=== PATIENT | male | born 1955 | race Caucasian/White ===

== ENCOUNTER 2019-11-12 12:34 | Emergency (ER) | payer BC ==
[2019-11-12] MEDS ORDERED: Aspirin 81 MG Tab.Chew PO ONE (12:35)
[2019-11-12] MEDS ORDERED: Sodium Chloride 0.9% 10 ML Syringe FLUSH PRN (12:35)
[2019-11-12] MEDS ORDERED: Sodium Chloride 0.9% 1,000 ML IV SCH (12:45)
--- NOTE | 2019-11-12 13:00 | CR ---
Chest: Portable view of the chest was obtained. Comparison: No prior chest imaging is available. Heart size and mediastinum are normal. Lungs are clear with no acute parenchymal change. Minimal scoliosis and degenerative spurring is noted within the spine. Impression: 1. Findings as noted above. 2. Nothing acute is appreciated. Diagnostic code #2 This report was dictated in MDT
[2019-11-12] MEDS ORDERED: Ondansetron 4 MG/2 ML SDV IVPUSH ONE (13:15)
[2019-11-12] MEDS ORDERED: Sodium Chloride 0.9% 1,000 ML IV ONE (13:22)
--- NOTE | 2019-11-12 13:28 | EDM.PDOC ---
ED HPI GENERAL MEDICAL PROBLEM - General Chief Complaint: Chest Pain Stated Complaint: [facility] Time Seen by Provider: 11/12/19 12:37 Source of Information: Reports: Patient History Limitations: Reports: No Limitations - History of Present Illness INITIAL COMMENTS - FREE TEXT/NARRATIVE: The patient presents by [facility] for chest pain. [place] He started getting lightheaded, diaphoretic and had chest pain. He called 911 and they met him on the road. This has never happened before. He has no history of heart disease. He does have hypertension and hypercholesterolemia. He does not smoke and he has no history of diabetes. EMS had a junctional rhythm in the 40s during transport. When he arrived here, he was in a sinus rhythm in the 40s and 50s. The chest pain is nearly gone. Onset: Sudden Duration: Minutes: Location: Reports: Chest Quality: Reports: Pressure Severity: Moderate Improves with: Reports: None Worsens with: Reports: None Associated Symptoms: Reports: Chest Pain, Shortness of Breath. Denies: Cough, Fever/Chills, Headaches, Nausea/Vomiting - Related Data Allergies Allergy/AdvReac Type Severity Reaction Status Date / Time No Known Allergies Allergy Verified 11/12/19 12:42 Home Meds: Home Meds Losartan [Cozaar] 100 mg PO DAILY 11/12/19 [History] Omeprazole 20 mg PO DAILY 11/12/19 [History] Primadone 200 mg PO DAILY 11/12/19 [History] atorvaSTATin [Lipitor] 10 mg PO DAILY 11/12/19 [History] Past Medical History Cardiovascular History: Reports: High Cholesterol, Hypertension Gastrointestinal History: Reports: GERD Neurological History: Reports: Other (See Below) Other Neuro History: tremors/shakes Social & Family History - Tobacco Use Smoking Status *Q: Never Smoker - Caffeine Use Caffeine Use: Reports: Coffee - Recreational Drug Use Recreational Drug Use: No ED ROS GENERAL - Review of Systems Review Of Systems: See Below Constitutional: Reports: Weakness, Fatigue HEENT: Reports: No Symptoms Respiratory: Reports: Shortness of Breath Cardiovascular: Reports: Chest Pain Endocrine: Reports: No Symptoms GI/Abdominal: Reports: No Symptoms : Reports: No Symptoms Musculoskeletal: Reports: No Symptoms Skin: Reports: No Symptoms ED EXAM, GENERAL - Physical Exam Exam: See Below Exam Limited By: No Limitations General Appearance: Alert, No Apparent Distress Ears: Normal External Exam Nose: Normal Inspection Head: Atraumatic, Normocephalic Neck: Normal Inspection Respiratory/Chest: No Respiratory Distress, Lungs Clear, Normal Breath Sounds Cardiovascular: No Edema, No Murmur, Bradycardia GI/Abdominal: Soft, Non-Tender, No Organomegaly, No Mass Back Exam: Normal Inspection Extremities: Normal Inspection EKG INTERPRETATION EKG Date: 11/12/19 Time: 12:31 Rhythm: Other (sinus bradycardia) Rate (Beats/Min): 45 [place]: Normal P-Wave: Present QRS: Normal ST-T: Normal QT: Normal Course - Vital Signs Last Recorded V/S: Last Vital Signs Temp 96.2 F L 11/12/19 12:36 Pulse 50 L 11/12/19 12:36 Resp 20 11/12/19 12:36 BP 161/100 H 11/12/19 12:36 Pulse Ox 100 11/12/19 12:36 - Orders/Labs/Meds Orders: Active Orders 24 hr Category Date Time Status Cardiac Monitoring [RC] . DIRECTED Care 11/12/19 12:35 Active EKG Documentation Completion [RC] STAT Care 11/12/19 12:36 Active Oxygen Therapy [RC] PRN Care 11/12/19 12:35 Active Peripheral IV Care [RC] . DIRECTED Care 11/12/19 12:36 Active CORONAVIRUS COVID-19 RAPID PCR [MOLEC] Stat Lab 11/12/19 14:13 Received Sodium Chloride 0.9% [Normal Saline] 1,000 ml Med 11/12/19 12:45 Active IV ASDIRECTED Sodium Chloride 0.9% [Saline Flush] Med 11/12/19 12:35 Active 10 ml FLUSH ASDIRECTED PRN Peripheral IV Insertion Adult [OM.PC] Stat Oth 11/12/19 12:35 Ordered Medication Orders Sodium Chloride (Normal Saline) 1,000 mls @ 150 mls/hr IV ASDIRECTED VERONIKA Last Infusion: 11/12/19 13:50 Dose: 999 mls/hr Documented by: Admin: 11/12/19 12:35 Dose: 150 mls/hr Documented by: GILBERT Sodium Chloride (Saline Flush) 10 ml FLUSH ASDIRECTED PRN PRN Reason: Keep Vein Open Last Admin: 11/12/19 13:14 Dose: 10 ml Documented by: GILBERT Labs: Laboratory Tests 11/12/19 11/12/19 11/12/19 Range/Units 12:45 12:45 12:45 WBC 5.00 (4.23-9.07) K/mm3 RBC 4.86 (4.63-6.08) M/mm3 Hgb 15.4 (13.7-17.5) gm/dl Hct 45.4 (40.1-51.0) % MCV 93.4 H (79.0-92.2) fl MCH 31.7 (25.7-32.2) pg MCHC 33.9 (32.2-35.5) g/dl RDW Std Deviation 46.9 H (35.1-43.9) fL Plt Count 172 (163-337) K/mm3 MPV 10.5 (9.4-12.3) fl Neut % (Auto) 51.0 (34.0-67.9) % Lymph % (Auto) 35.2 (21.8-53.1) % [place] % (Auto) 11.6 (5.3-12.2) % Eos % (Auto) 1.8 (0.8-7.0) Baso % (Auto) 0.2 (0.1-1.2) % Neut # (Auto) 2.55 (1.78-5.38) K/mm3 Lymph # (Auto) 1.76 (1.32-3.57) K/mm3 [place] # (Auto) 0.58 (0.30-0.82) K/mm3 Eos # (Auto) 0.09 (0.04-0.54) K/mm3 Baso # (Auto) 0.01 (0.01-0.08) K/mm3 D-Dimer, Quantitative 0.43 (0.19-0.50) mg/L Sodium 139 (136-145) mEq/L Potassium 5.6 H (3.5-5.1) mEq/L Chloride 104 (98-107) mEq/L Carbon Dioxide 28 (21-32) mEq/L Anion Gap 12.6 (5-15) BUN 22 H (7-18) mg/dL Creatinine 1.4 H (0.7-1.3) mg/dL Est Cr Clr Drug Dosing 53.31 mL/min Estimated GFR (MDRD) 51 (>60) mL/min BUN/Creatinine Ratio 15.7 (14-18) Glucose 119 H (80-115) mg/dL Calcium 9.2 (8.5-10.1) mg/dL Total Bilirubin 0.8 (0.2-1.0) mg/dL AST 22 (15-37) U/L ALT 27 (16-63) U/L Alkaline Phosphatase 57 (46-116) U/L Troponin I < 0.017 (0.00-0.056) ng/mL Total Protein 6.6 (6.4-8.2) g/dl Albumin 3.6 (3.4-5.0) g/dl Globulin 3.0 gm/dL Albumin/Globulin Ratio 1.2 (1-2) Meds: Medications Generic Name Dose Route Start Last Admin Trade Name Freq PRN Reason Stop Dose Admin Sodium Chloride 1,000 mls @ 150 mls/hr 11/12/19 12:45 11/12/19 13:50 Normal Saline IV 999 mls/hr ASDIRECTED VERONIKA Infusion Sodium Chloride 10 ml 11/12/19 12:35 11/12/19 13:14 Saline Flush FLUSH 10 ml ASDIRECTED PRN Administration Keep Vein Open Discontinued Medications Generic Name Dose Route Start Last Admin Trade Name Freq PRN Reason Stop Dose Admin Aspirin 324 mg 11/12/19 12:35 11/12/19 12:35 Aspirin PO 11/12/19 12:36 324 mg ONETIME ONE Administration Sodium Chloride 1,000 mls @ 1,000 mls/hr 11/12/19 13:22 11/12/19 14:06 Normal Saline IV 11/12/19 14:21 Not Given ONETIME ONE Metoprolol Tartrate 25 mg 11/12/19 14:19 Lopressor PO 11/12/19 14:20 ONETIME ONE Ondansetron HCl 4 mg 11/12/19 13:15 11/12/19 13:21 Zofran IVPUSH 11/12/19 13:16 4 mg ONETIME ONE Administration - Re-Assessments/Exams Free Text/Narrative Re-Assessment/Exam: 11/12/19 13:33 I ordered an IV NS 1L bolus, EKG, CXR, aspirin and labs. His EKG shows a sinus bradycardia with no acute changes. His CXR looks good. His CBC looks good. His D-dimer is negative. His K is slightly elevated at 5.6. His creatinine is a little elevated at 1.4. His troponin is negative. 11/12/19 14:20 I feel he needs to be admitted for a chest pain rule out and monitor his heart rate. I talked to the patient and he is okay with that but he would like to go to [place]. He is from [place]. I called [facility] in [place] and talked to the hospitalist Dr Banks and she accepted the patient. Departure - Departure Time of Disposition: 14:30 Disposition: DC/Tfer to [facility] 02 Reason for Transfer *Q: Other Condition: Fair Clinical Impression: Bradycardia Chest pain Qualifiers: Chest pain type: unspecified Qualified Code(s): R07.9 - Chest pain, unspecified Referrals: Tru Karimi MD [Primary Care Provider] - Forms: ED Department Discharge Sepsis Event Note (ED) - Evaluation Sepsis Screening Result: No Definite Risk - Focused Exam Vital Signs: Vital Signs Temp Pulse Resp BP Pulse Ox 11/12/19 12:36 96.2 F L 50 L 20 161/100 H 100 - My Orders Last 24 Hours: My Active Orders 11/12/19 12:35 Cardiac Monitoring [RC] . DIRECTED Oxygen Therapy [RC] PRN Sodium Chloride 0.9% [Saline Flush] 10 ml FLUSH ASDIRECTED PRN Peripheral IV Insertion Adult [OM.PC] Stat 11/12/19 12:36 EKG Documentation Completion [RC] STAT Peripheral IV Care [RC] . DIRECTED 11/12/19 12:45 Sodium Chloride 0.9% [Normal Saline] 1,000 ml IV ASDIRECTED 11/12/19 14:13 CORONAVIRUS COVID-19 RAPID PCR [MOLEC] Stat - Assessment/Plan Last 24 Hours: My Active Orders 11/12/19 12:35 Cardiac Monitoring [RC] . DIRECTED Oxygen Therapy [RC] PRN Sodium Chloride 0.9% [Saline Flush] 10 ml FLUSH ASDIRECTED PRN Peripheral IV Insertion Adult [OM.PC] Stat 11/12/19 12:36 EKG Documentation Completion [RC] STAT Peripheral IV Care [RC] . DIRECTED 11/12/19 12:45 Sodium Chloride 0.9% [Normal Saline] 1,000 ml IV ASDIRECTED 11/12/19 14:13 CORONAVIRUS COVID-19 RAPID PCR [MOLEC] Stat
[2019-11-12] MEDS ORDERED: Metoprolol Tartrate 25 MG Tab PO ONE (14:19)
== END 2019-11-12 16:50 ==
LOC: JD.ED 12:34
DX: R07.9 Chest pain, unspecified (principal); R00.1 Bradycardia, unspecified; I10 Essential (primary) hypertension; E78.00 Pure hypercholesterolemia, unspecified; K21.9 Gastro-esophageal reflux disease without esophagitis; Z79.899 Other long term (current) drug therapy; Z20.828 Contact with and (suspected) exposure to other viral communicable diseases
CPT/HCPCS: 36415; 71045; 80053; 84484; 85025; 85379; 87635; 93005; 96374; 99285; A9270; J2405; J7030; U0002